=== PATIENT | female | born 1985 | race Caucasian/White ===

== ENCOUNTER 2021-07-19 10:56 | Outpatient (CLI) | payer BC ==
[2021-07-19 12:05] LABS: #Eosinphils 0.1 10x3/uL (0.0-0.5); #Monocytes 0.7 10x3/uL (0.0-1.1); %Basophils 0.3 % (0.0-2.0); %Eosinophils 0.5 % (0.0-6.0); %Lymphocytes 26.8 % (18.0-47.0); %Monocytes 4.9 % (0.0-10.0); %Neutrophils 67.3 % (40.0-75.0); Hemoglobin 15.2 g/dL (12.0-15.5); Mean Corpuscular HGB CONC 33.4 g/dL (32.0-36.0); Mean Corpuscular Hemoglobin 29.5 pg (27.0-33.0); Mean Corpuscular Volume 88.2 fl (81.6-98.3); Mean Platelet Volume 10.6 fl (7.4-10.4); Platelet Count 368 10x3/uL (150-450); RBC Distribution Width 12.7 % (11.5-14.5); Red Blood Cell (RBC) Count 5.16 10x6/uL (3.90-5.03); White Blood Cell (WBC) Count 13.3 10x3/uL (3.5-10.5)
[2021-07-19 12:14] LABS: BHCG - Serum Negative (NEGATIVE); Pregs Control Background? CLEAR/WHITE (CLR/WHITE); Pregs Control Bar Appear? YES (CONTROL BAR)
[2021-07-19 12:36] LABS: Anion Gap 15 mmol/L (10-20); BUN (Urea Nitrogen) 13 mg/dL (7.0-18.7); Calc. Creatinine Clearance 0 mL/min (70-130); Calcium 9.6 mg/dL (7.8-10.44); Carbon Dioxide 27 mmol/L (22-29); Chloride 99 mmol/L (98-107); Glucose 84 mg/dL (70-105); Potassium 4.2 mmol/L (3.5-5.1); Sodium 137 mmol/L (136-145)
[2021-07-19 22:54] LABS: SARS-CoV-2 PCR by NAA Not Detected (NotDetected)
== END 2021-07-19 10:57 | disposition home or self-care (01) ==
LOC: LABBT 10:56
PROVIDERS: ATTEND Orthopaedic Surgery
DX: Z01.812 Encounter for preprocedural laboratory examination (principal); M23.91 Unspecified internal derangement of right knee; Z20.822 Contact with and (suspected) exposure to COVID-19
CPT/HCPCS: 80048; 84703; 85025; U0003; U0005

== ENCOUNTER 2021-07-24 05:39 | Day surgery (SDC) | payer BC ==
[2021-07-22 11:34] VITALS: BMI 26.1
[2021-07-24] MEDS ORDERED: PROPOFOL 20 ML ONE (07:05)
[2021-07-24] MEDS ORDERED: ceFAZolin (BATCH) 2 GM/100 ML BAG ONE (07:16)
[2021-07-24] MEDS ORDERED: Midazolam HCl 2 mg/2 ml Vial ONE (07:48)
[2021-07-24] MEDS ORDERED: fentaNYL Citrate/PF 100 MCG/2 ML SYRINGE ONE (07:49)
[2021-07-24] MEDS ORDERED: Lidocaine 2% w/Epinephrine 1:200K 20 ML VIAL ONE (07:50)
[2021-07-24] MEDS ORDERED: Ondansetron PF 4 MG/2 ML Vial ONE (07:50)
[2021-07-24] MEDS ORDERED: Ketorolac Tromethamine 30 MG/ML VIAL ONE (07:50)
[2021-07-24] MEDS ORDERED: PROPOFOL 200 MG/20 ML VIAL ONE (07:50)
[2021-07-24] MEDS ORDERED: Lidocaine 1% PF 5 ML VIAL ONE (07:50)
[2021-07-24] MEDS ORDERED: Bupivacaine HCl 0.5%/Epinephrine 1:200,000/PF 30 ml Vial ONE (07:50)
[2021-07-24] MEDS ORDERED: HYDROcodone/Acetaminophen 5/325 mg Tablet ONE (10:25)
== END 2021-07-24 11:33 | disposition home or self-care (01) ==
LOC: SDC 05:39
PROVIDERS: ATTEND Orthopaedic Surgery
PROC: 0SBC4ZZ Excision of Right Knee Joint, Percutaneous Endoscopic Approach (ICD-10-PCS; principal; 2021-07-24)
DX: M94.261 Chondromalacia, right knee (principal); Z86.16 Personal history of COVID-19; Z79.3 Long term (current) use of hormonal contraceptives; Z79.899 Other long term (current) drug therapy
CPT/HCPCS: J0690; J1885; J2250; J2405; J2704

== ENCOUNTER 2021-08-01 12:31 | Outpatient (CLI) | payer BC | END 2021-08-01 12:32 | disposition home or self-care (01) | LOC: ULT 12:31 | PROVIDERS: ATTEND Orthopaedic Surgery | DX: R22.41 Localized swelling, mass and lump, right lower limb (principal); I82.411 Acute embolism and thrombosis of right femoral vein ==